=== PATIENT | male | born 1970 | race Caucasian/White ===

== ENCOUNTER 2022-05-31 16:45 | Observation (INO) | payer OTHER, SELFPAY ==
--- NOTE | ~2022-05-31 | US_ITS ---
EXAMINATION: US abdomen limited DATE: 06/01/2022 14:11 INDICATION: gallstones TECHNIQUE: Multiple grayscale and Doppler ultrasound images of limited portions of the abdomen were o btained. COMPARISON: None available. FINDINGS: Pancreas not visualized. The liver is normal sized with increased echogenicity and normal e chotexture. No surface nodularity. Normal hepatopetal flow in the main portal vein. The gallbladder i s normal size with no pericholecystic fluid or stones. Focal borderline gallbladder wall thickening a t the gallbladder fundus, with associated twinkle artifact and subtle/incomplete comet tail versus ri ng down artifact. The common bile duct measures 3 mm. There was no sonographic Winston sign. IMPRESSION: Pancreas not visualized. Hepatic steatosis. Gallbladder fundus findings may represent a small focus o f adherent gallbladder sludge with a tiny stone versus adenomyomatosis or cholesterolosis. Reviewed, dictated and finalized at [facility]. IMPRESSION: Pancreas not visualized. Hepatic steatosis. Gallbladder fundus findings may rep resent a small focus of adherent gallbladder sludge with a tiny stone versus ad enomyomatosis or cholesterolosis.
--- NOTE | ~2022-05-31 | CT_ITS ---
EXAMINATION: CTA chest PE abdomen pel DATE: 05/31/2022 21:02 INDICATION: Pain under right ribs. Deep venous thrombosis. Abdominal pain. TECHNIQUE: Computed tomography angiography (CTA) of the chest, abdomen and pelvis was performed with 100 mL Omnipaque-350 intravenous contrast timed to evaluate the pulmonary arteries. Coronal maximum i ntensity projection 3D-reconstructions were created by the technologist. Automated exposure control a nd iterative reconstruction technique were employed. Exam dose: 1754.90 mGy-cm total exam DLP. COMPARISON: None. FINDINGS: There is diagnostic contrast enhancement of the pulmonary arteries and no evidence of left pulmonary saddle embolus. No thoracic aortic aneurysm. Normal heart size. No pericardial or pleural effusion. No hilar or mediastinal mass lesion or lymphadenopathy. No evidence of right heart strain. No pulmonary infiltrate or consolidation or pulmonary mass lesion. Small stone in the dependent aspect of the gallbladder. There is borderline thickening of the gallbla dder wall is suggestion of mild pericholecystic fat stranding. Consider acute cholecystitis. The liver, spleen, pancreas, and adrenal glands and kidneys are unremarkable. There is no bile duct or pancreatic duct dilatation. No urinary tract calculus or hydroureteronephros is. Normal caliber of the abdominal aorta. No intraperitoneal or retroperitoneal or pelvic mass lesion or adenopathy or ascites. Acute Normal appendix. No bowel obstruction or intraperitoneal free air. No suspicious osteolytic or osteoblastic lesions. IMPRESSION: Left central pulmonary embolus; no evidence of right heart strain Gallstones are; cannot exclude acute cholecystitis Dr. Ghosh telephoned the report on 05/31/20226 hours to emergency room physician Dr. Haro. Reviewed, dictated and finalized at [facility]. Reviewed, dictated and finalized at [facility]. IMPRESSION: Left central pulmonary embolus; no evidence of right heart strain Gallstones are; cannot exclude acute cholecystitis Dr. Ghosh telephoned the report on 05/31/2022 2126 hours to emergency room physici an Dr. Haro.
[2022-05-31 16:48] VITALS: BP 132/97; PULSE 61; RESP 20; TEMP 36.3; O2SAT 100
[2022-05-31 17:01] LABS: Basophils Absolute Auto 0.1 K/mm3 (0.0-0.1); Basophils Percent Auto 0.4 % (0.2-1.2); Eosinophils Absolute Auto 0.1 K/mm3 (0-0.3); Eosinophils Percent Auto 0.8 % (0-4.4); Hematocrit 40.5 % (42.0-52.0); Hemoglobin 14.4 g/dL (14.0-18.0); Immature Granulocyte Absolute 0.03 K/mm3 (0.00-0.031); Immature Granulocyte Percent A 0.3 % (0-0.5); Lymphocytes Absolute Auto 1.77 K/mm3 (0.9-3.2); Lymphocytes Percent Auto 15.2 % (18.3-44.2); Mean Corpuscular HGB Conc 35.6 g/dl (32-36); Mean Corpuscular Hemoglobin 31.8 pg (26-34); Mean Corpuscular Volume 89.4 fl (80-100); Mean Platelet Volume 9.2 fl (7.4-10.4); Monocytes Absolute Auto 0.9 K/mm3 (0.1-0.6); Monocytes Percent Auto 7.3 % (2.6-8.5); Neutrophils Absolute Auto 8.9 K/mm3 (1.3-6.7); Platelet Count Result 274 k/mm3 (150-375); Red Blood Count 4.53 M/mm3 (4.6-6.20); Red Cell Distribution Width 11.9 % (11.5-14.5); White Blood Count 11.7 K/mm3 (4.5-10.0)
[2022-05-31 17:14] LABS: Alanine Aminotransferase 73 U/L (6-50); Albumin Level 4.3 g/dL (3.5-5.1); Alkaline Phosphatase 127 U/L (38-126); Anion Gap 6 mmol/L (8-16); Aspartate Amino Transferase 43 U/L (17-59); Bilirubin,Total 0.8 mg/dL (0.2-1.3); Blood Urea Nitrogen 19 mg/dL (9-20); Calcium 9.4 mg/dL (8.4-10.2); Carbon Dioxide 30 mmol/L (22-30); Chloride 103 mmol/L (98-107); Estimated CRCL calculation 103 ml/min; Estimated Glomerular Filt Rate > 60; Glucose 148 mg/dL (65-110); Lipase 96 U/L (23-300); Potassium 4.2 mmol/L (3.4-5.0); Sodium 139 mmol/L (137-145)
[2022-05-31 20:08] VITALS: PULSE 76; RESP 18
[2022-05-31 20:15] VITALS: PULSE 72; RESP 23
[2022-05-31 20:30] VITALS: PULSE 70; RESP 16
[2022-05-31 20:32] VITALS: BP 125/85; PULSE 68; RESP 17
--- NOTE | 2022-05-31 20:50 | ED.GENADULT ---
HPI - General Adult General Chief complaint: Abdominal Pain Stated complaint: ABD PAIN Time Seen by Provider: 05/31/22 20:03 Source: patient and RN notes reviewed Mode of arrival: ambulatory Limitations: no limitations History of Present Illness HPI narrative: This a 52 year old male with history of recent left leg DVT diagnosis who presents for evaluation of right upper abdominal pain. Patien states approximately 1 hours after eating [employer] he developed right upper abdominal pain with nausea and vomiting. He also reports pain under his right rib and his back . He states his pain has now resolved and he denies current nausea . He denies shortness of breath, dizziness, fever or chills. He denies history of gallbladder disease or gallstones. He is concerned that his symptoms are due to PE. He had lipoma removed from his neck in 1 weeks ago and he was diagnosed with left DVT 7 days ago due to calf pain. He denies previous history of DVT and it is thought this is postop complication. Related Data Allergies Allergy/AdvReac Type Severity Reaction Status Date / Time No Known Allergies Allergy Verified 05/31/22 20:13 Review of Systems Constitutional: Constitutional: Denies weakness Cardiovascular: Cardiovascular: Denies syncope, Denies rapid heart rate, Denies irregular heart rhythm, Denies leg edema and Denies dyspnea Respiratory: Respiratory: Denies chest congestion, Denies hemoptysis, Denies excessive phlegm production and Denies dyspnea Gastrointestinal: Gastrointestinal: Reports abdominal pain, Denies hematochezia, Denies diarrhea, Reports nausea and Reports vomiting Genitourinary: Genitourinary: Denies hematuria, Denies dysuria, Denies penile discharge and Denies testicular pain Musculoskeletal: Musculoskeletal: Denies joint swelling, Denies loss of height and Denies muscle weakness Neurologic: Denies syncope, Denies focal weakness and Denies weakness PMFSH Past Medical History Medical History (Updated 05/31/22 @ 23:21 by Monika Haro MD) DVT (deep venous thrombosis) Lipoma Surgical History Surgical History (Updated 05/31/22 @ 20:56 by Monika Haro MD) S/P excision of lipoma Social History Social History (Updated 05/31/22 @ 20:56 by Monika Haro MD) Smoking status: Never smoker Exam Const: General: healthy appearing, no acute distress and alert Nutritional Appearance: well nourished Orientation/consciousness: patient oriented x3 HENMT: Head: normal to inspection Face and sinus: normal facial exam Eyes: EOM: EOMs intact bilaterally Neck: Neck: normal visual inspection Chest: Chest palpation & inspection: normal inspection of the chest Resp: Effort & Inspection: normal respiratory effort Auscultation: clear to auscultation bilaterally Cardio: Rate: regular rate Rhythm: regular rhythm GI: GI Palp: Yes Soft to palpation, No Tenderness to palpation present (GI), No Guarding due to palpation present (GI), No Rigid due to palpation and No Hernia present Auscultation: normal bowel sounds : General: Yes no CVA tenderness Back/Spine/Pelvis: Back: no CVA tenderness Skin: General skin exam: normal color Rashes: no rashes Wounds: no wounds Neuro: General: patient oriented x3, moves all extremities and CN's II-XI intact bilaterally Extrem: General: normal to inspection Psych: Mental Status: mental status grossly normal Affect: normal affect Attitude: cooperative Course Reevaluation(s) Reevaluation #1: I Discussed with patient and his CT findings of PE and possible cholecystitis. PAtient is agreeable to admission to [facility] instead of [facility] were his lipoma incision done. He is stable. He denies any pain or sob. Date: 05/31/22 Time: 22:00 Consultations Consultation #1: I Discussed case with DR. Humphrey. He states he does not need to consult on patient. PAtient does not need antibiotics. He will just need to follow up with him after discharge. Date:
[2022-05-31 21:05] LABS: Appearance Urine Turbid (Clear); Bacteria Urine None Seen /hpf; Bilirubin Urine Negative (Negative); Blood Urine Negative (Negative); Color Urine Yellow (Yellow); Glucose Urine UA Negative (Negative); Ketones Urine Negative (Negative); Leukocyte Esterase Ur Negative LEU/UL (Negative); Need Manual Microscopic Reviewed; Nitrate Urine Negative (Negative); Non Pathogenic Casts 0-2; Protein Urine 1+ mg/dL (Negative); Specific Grav Ur 1.033 (1.001-1.035); Squamous Epithelial Cell Urine None seen /hpf (Few); WBC Urine 0-5 /hpf
[2022-05-31 21:06] LABS: Add Urine Microscopic? YES
--- NOTE | 2022-05-31 21:26 | ECG_ITS ---
Measurements Intervals [place] Rate: 62 P: 15 UT: 182 QRS: -9 QRSD: 108 T: 19 QT: 411 QTc: 420 Interpretive Statements SINUS RHYTHM RSR' V1 EARLY R/S TRANSITION BORDERLINE ECG NO PREVIOUS ECG AVAILABLE FOR COMPARISON Electronically Signed On 06-01-2022 15:20:29 CDT by Francis Thompson M.D.
--- NOTE | 2022-05-31 21:34 | PM.IMHP ---
H&P: HPI History of Present Illness Date/Time: 05/31/22 21:34 Chief Complaint: Right upper quadrant pain Narrative: This is a 52-year-old male with past medical history significant for recently diagnosed left lower extremity DVT patient was started on Eliquis and sent home he comes to the emergency room today after sudden onset of right upper quadrant pain while taking a deep breath, patient denies any cough, hemoptysis, palpitations, lightheadedness, syncope or near syncope, no chest pain. Patient has been complying with his medication. Preliminary workup was significant for acute pulmonary embolism. Patient is been admitted for further evaluation management and treatment. CT chest PE protocol was reported as FINDINGS: There is diagnostic contrast enhancement of the pulmonary arteries and no evidence of left pulmonary saddle embolus. No thoracic aortic aneurysm. Normal heart size. No pericardial or pleural effusion. No hilar or mediastinal mass lesion or lymphadenopathy. No evidence of right heart strain. No pulmonary infiltrate or consolidation or pulmonary mass lesion. Small stone in the dependent aspect of the gallbladder. There is borderline thickening of the gallbladder wall is suggestion of mild pericholecystic fat stranding. Consider acute cholecystitis. The liver, spleen, pancreas, and adrenal glands and kidneys are unremarkable. There is no bile duct or pancreatic duct dilatation. No urinary tract calculus or hydroureteronephrosis. Normal caliber of the abdominal aorta. No intraperitoneal or retroperitoneal or pelvic mass lesion or adenopathy or ascites. Acute Normal appendix. No bowel obstruction or intraperitoneal free air. No suspicious osteolytic or osteoblastic lesions. IMPRESSION:? Left central pulmonary embolus; no evidence of right heart strain Gallstones are; cannot exclude acute cholecystitis Review of Systems Review of Systems: Right upper quadrant pain Constitutional: Constitutional: Denies chills, Denies fatigue, Reports fever(s), Denies lethargy, Denies malaise, Denies night sweats, Denies poor appetite and Denies weakness Eyes: Eyes: Denies change in vision ENT: Denies dysphagia and Denies odynophagia Cardiovascular: Cardiovascular: Denies chest pain, Denies irregular heart rhythm, Denies leg edema, Denies lightheadedness and Denies palpitations Respiratory: Respiratory: Denies chest congestion, Denies cough, Denies hemoptysis and Denies dyspnea Gastrointestinal: Gastrointestinal: Denies abdominal pain, Denies dyspepsia, Denies heartburn, Denies diarrhea, Denies nausea and Denies vomiting Genitourinary: Genitourinary: Denies dysuria Musculoskeletal: Musculoskeletal: Denies back pain, Denies myalgias, Denies joint swelling and Denies muscle weakness Integumentary/Breasts: Skin/Breast: Denies rash Neurologic: Denies focal weakness and Denies Sensory deficit (Neuro) Psychiatric: Psychiatric: Reports no additional psychiatric complaints and Reports as per HPI Endocrine: Endocrine: Denies cold intolerance, Denies fatigue, Denies flushing, Denies heat intolerance, Denies polyphagia, Denies polydipsia and Denies palpitations Hematologic/Lymphatic: Hematologic/Lymphatic: Reports no additional hematologic/lymphatic complaints and Reports as per HPI Allergic/Immunologic: Allergic/Immunologic: Reports no additional allergic/immunologic complaints and Reports as per HPI PMFSH Past Medical History Medical History (Updated 06/01/22 @ 00:18 by Som Cortez MD) DVT (deep venous thrombosis) Lipoma Surgical History Surgical History (Updated 05/31/22 @ 20:56 by Monika Haro MD) S/P excision of lipoma Social History Social History (Updated 05/31/22 @ 20:56 by Monika Haro MD) Smoking status: Never smoker Alcohol intake: current Drinks per week: 1 Substance use: never Substance use type: does not use Lack of Transportation: No Lack of Food: Never True Current Hous
[2022-05-31] MEDS: PIPERACILLN/TAZ 3.375GM/NS50ML 3.375 GM/50 ML BAG IVPB (22:07)
[2022-05-31 22:10] LABS: NT Pro B Type Natriuretic Pept 22 pg/mL (19.9-100); Troponin I < 0.012 ng/mL (0.000-0.034)
[2022-05-31 22:12] LABS: INR 1.1; Prothrombin Time 13.5 Seconds (11.1-14.7)
[2022-05-31 22:13] LABS: Partial Thromboplastin Time 30.3 SECONDS (22.3-36.8)
[2022-05-31] MEDS: HEPARIN SOD/D5W 100 UNITS/ML 25,000 UNITS/250 ML BAG 15 UNITS IV CONT (22:25)
[2022-05-31] MEDS: HEPARIN SODIUM 5,000 UNITS/ML VIAL 7000 UNITS IV PUSH (22:27)
[2022-05-31 23:10] VITALS: PULSE 85; RESP 17; O2SAT 100; BMI 33.0
[2022-06-01] VITALS (7 sets, daily range): BP systolic 120–128; BP diastolic 78–85; PULSE 64–81; RESP 16–20; TEMP 36.8–36.9; O2SAT 95–97
[2022-06-01 06:09] LABS: Basophils Percent Auto 0.5 % (0.2-1.2); Eosinophils Absolute Auto 0.1 K/mm3 (0-0.3); Eosinophils Percent Auto 1.1 % (0-4.4); Hematocrit 39.9 % (42.0-52.0); Immature Granulocyte Absolute 0.03 K/mm3 (0.00-0.031); Immature Granulocyte Percent A 0.4 % (0-0.5); Lymphocytes Absolute Auto 2.42 K/mm3 (0.9-3.2); Lymphocytes Percent Auto 29.1 % (18.3-44.2); Mean Corpuscular HGB Conc 35.1 g/dl (32-36); Mean Corpuscular Hemoglobin 31.3 pg (26-34); Mean Corpuscular Volume 89.3 fl (80-100); Mean Platelet Volume 9.8 fl (7.4-10.4); Monocytes Absolute Auto 0.8 K/mm3 (0.1-0.6); Monocytes Percent Auto 9.1 % (2.6-8.5); Neutrophils Percent Auto 59.8 % (45.5-73.1); Platelet Count Result 259 k/mm3 (150-375); Red Blood Count 4.47 M/mm3 (4.6-6.20); Red Cell Distribution Width 11.9 % (11.5-14.5); White Blood Count 8.3 K/mm3 (4.5-10.0)
[2022-06-01 06:12] LABS: Partial Thromboplastin Time 75.8 SECONDS (22.3-36.8)
[2022-06-01] MEDS: HEPARIN SOD/D5W 100 UNITS/ML 25,000 UNITS/250 ML BAG 15 UNITS IV CONT (06:22)
[2022-06-01] MEDS: MULTIVITAMIN HEMATINIC (*BKC) TABLET 1 TABLET PO (08:11)
[2022-06-01] MEDS: FAMOTIDINE 20 MG TABLET PO (08:11)
[2022-06-01] MEDS: NIACIN SA 500 MG TABLET PO (08:11)
[2022-06-01] MEDS: OMEGA 3 POLYUNSAT FATTY ACIDS 1 GM CAP PO (08:11)
[2022-06-01] MEDS: valACYclovir HCL 500 MG TABLET PO (08:11)
[2022-06-01] MEDS: LORATADINE 10 MG TABLET PO (08:14)
--- NOTE | 2022-06-01 09:15 | PM.DS ---
DS: Admitting Diagnosis Discharge Date 06/01/2215 Admitting Diagnosis acute PE DS: Discharge Diagnosis Discharge Diagnosis (1) Pulmonary emboli: Code(s): I26.99 - Other pulmonary embolism without acute cor pulmonale Status: Acute Assessment and Plan: diagnosed with DVT 1 week ago continue Eliquis and discontinue heparin most likely related to the DVT patient did report having walked yesterday symptoms have resolved (2) DVT (deep venous thrombosis): Code(s): I82.409 - Acute embolism and thrombosis of unspecified deep veins of unspecified lower extremity Status: Acute Assessment and Plan: see above (3) Abdominal pain, acute, right upper quadrant: Code(s): R10.11 - Right upper quadrant pain Status: Acute Assessment and Plan: Galbladder disease General surgery consult right upper quadrant ultrasound ordered pending follow-up with General surgery outpatient DS: Summary Hospital Course Hospital Course: patient is a 52-year-old male with a past medical history of DVT who presented to the ED with complaints of right upper quadrant pain while taking a deep breath. CTA of the chest abdomen and pelvis showed acute PE without right heart strain. Patient was started on heparin. Symptoms have resolved. Right upper quadrant ultrasound has been ordered. CTA did indicate that there was gallstones. PE most likely related to acute DVT that he was diagnosed with 7 days ago. Heparin has been stopped and Eliquis has been restarted. Patient will need to follow up with General surgery outpatient. Currently he is able to tolerate food. Right upper quadrant ultrasound found . currently patient is stable for discharge for labs and vital signs. currently patient denies any chest pain, shortness a breath, nausea, vomiting, diarrhea constipation. Status at Discharge Functional status at discharge: independent ambulation Overall status at discharge: patient is progressing back to baseline Time Spent with Patient Time attestation: Total time spent providing and/or coordinating discharge services:51 minutes Time spent: Greater than 30 minutes Specific discharge activities: Diagnostic testing, chart review, developing a treatment plan, education, care coordination documentation, physical exam, result review Exam Narrative: General: well-nourished, well-appearing 52-year-old male, Lying in bed, comfortable, NARD Neuro: awake, alert and oriented x4, speech clear, no focal neuro deficits noted HEENMT: normocephalic, atraumatic, EOMI, sclerae anicteric, moist oral mucosa Respiratory: Clear to auscultation bilaterally without crackles, rhonchi or wheezes, nonlabored breathing Cardio: regular rate, regular rhythm with S1-S2 Abdomen: nondistended, normoactive bowel sounds, soft, nontender to palpation Extremities: no edema, erythema, or tenderness to palpation, DP pulses 2+ bilaterally Skin: no rashes or lesions, warm and dry Psych: appropriate mood and affect, judgment and insight intact DS: Data Data Completed and Pending Labs on day of discharge: Labs from last 24 hours 06/01/22 06/01/22 06/01/22 10:40 04:41 04:41 WBC 8.3 RBC 4.47 L Hgb 14.0 Hct 39.9 L MCV 89.3 MCH 31.3 MCHC 35.1 RDW 11.9 Plt Count 259 MPV 9.8 Immature Gran % (Auto) 0.4 Neut % (Auto) 59.8 Lymph % (Auto) 29.1 [place] % (Auto) 9.1 H Eos % (Auto) 1.1 Baso % (Auto) 0.5 Lymph # (Auto) 2.42 [place] # (Auto) 0.8 H Eos # (Auto) 0.1 Baso # (Auto) 0.0 Abs Immat Gran (auto) 0.03 Absolute Neuts (auto) 5.0 Absolute Nucleated RBC 0.0 Nucleated RBC % 0.0 PT INR APTT 51.5 H 75.8 H Sodium Potassium Chloride Carbon Dioxide Anion Gap BUN Creatinine Estim Creat Clear Calc Estimated GFR Glucose Calcium Total Bilirubin AST ALT Emilie
[2022-06-01 10:56] LABS: Partial Thromboplastin Time 51.5 SECONDS (22.3-36.8)
[2022-06-01] MEDS: HEPARIN SODIUM 5,000 UNITS/ML VIAL 7000 UNITS IV PUSH (11:16)
[2022-06-01] MEDS: ASPIRIN 81 MG CHEWABLE TABLET PO (11:16)
[2022-06-01 11:56] LABS: Alanine Aminotransferase 66 U/L (6-50); Albumin Level 4.1 g/dL (3.5-5.1); Alkaline Phosphatase 115 U/L (38-126); Anion Gap 6 mmol/L (8-16); Aspartate Amino Transferase 40 U/L (17-59); Bilirubin,Total 0.8 mg/dL (0.2-1.3); Blood Urea Nitrogen 14 mg/dL (9-20); Calcium 9.2 mg/dL (8.4-10.2); Carbon Dioxide 28 mmol/L (22-30); Chloride 104 mmol/L (98-107); Estimated CRCL calculation 115 ml/min; Estimated Glomerular Filt Rate > 60; Glucose 98 mg/dL (65-110); Potassium 3.7 mmol/L (3.4-5.0); Sodium 138 mmol/L (137-145)
[2022-06-01] MEDS: APIXABAN 5 MG TABLET 10 MG PO (12:29)
== END 2022-06-01 18:30 | disposition home or self-care (01) ==
LOC: ANHED 20:29 → ANH2MED 22:56
PROVIDERS: Emergency Medicine; Nurse Practitioner; Admitting Provider Internal Medicine; Emergency Provider General Practice; Visit Provider Chiropractor
DX: I26.99 Other pulmonary embolism without acute cor pulmonale (principal); I82.409 Acute embolism and thrombosis of unspecified deep veins of unspecified lower extremity; R10.11 Right upper quadrant pain; K76.0 Fatty (change of) liver, not elsewhere classified; R79.89 Other specified abnormal findings of blood chemistry; Z79.01 Long term (current) use of anticoagulants; F10.90 Alcohol use, unspecified, uncomplicated
CPT/HCPCS: 36415; 71275; 74177; 76705; 80053; 81001; 83690; 83880; 84484; 85025; 85610; 85730; 93005; 96365; 96366; 96367; 96375; 99285; A9270; G0378; J1644; J2543; Q9967

== ENCOUNTER 2024-08-02 10:06 | Outpatient (CLI) | payer OTHER, SELFPAY ==
--- NOTE | 2024-08-02 10:30 | ECG_ITS ---
Test Date: 2024-08-02 10:34:19 Measurements Intervals [place] Rate: 51 P: 5 MT: 171 QRS: -20 QRSD: 110 T: 3 QT: 388 QTc: 360 Interpretive Statements SINUS BRADYCARDIA DELAYED PRECORDIAL R/S TRANSITION BORDERLINE T WAVE ABNORMALITY- INFERIOR LEADS BORDERLINE ECG No previous ECG available for comparison Electronically Signed On 08-02-2024 10:39:18 CDT by Iraj Davis D.O.
[2024-08-02 11:10] LABS: Prothrombin Time 12.8 Seconds (11.1-14.7)
[2024-08-02 11:17] LABS: Alanine Aminotransferase 68 U/L (6-50); Albumin Level 4.5 g/dL (3.5-5.1); Alkaline Phosphatase 82 U/L (38-126); Amylase 66 U/L (30-110); Aspartate Amino Transferase 44 U/L (17-59); Bilirubin Direct 0.1 mg/dL (0-0.3); Lipase 57 U/L (23-300); Total Protein 7.9 g/dL (6.3-8.2)
--- OUTSIDE RECORDS SUMMARY | 2024-08-02 11:18 | XMS_ITS | Clinical Summary ---
Author Organization [facility] Address [address] [place] [address] Phone Care Team Providers Care Dip Tube Assembler Machine Name Role Phone Angie Gomez MD Primary Care Provider [phone] Allergies No known active allergies Medications aspirin (RAÚL CHEWABLE) 81 mg Tablet, Chewable Take 81 mg by mouth daily. Active omega-3 fatty acids-fish oil 300-1,000 mg Capsule Take 2 Capsules by mouth daily. Active multivitamin (DAILY-FAUSTINA) tablet Take 1 Tablet by mouth daily. Active niacin (NIACOR) 100 mg Tablet Take 100 mg by mouth daily at bedtime. Active cyanocobalamin (VITAMIN B-12) 100 mcg tablet Take 100 mcg by mouth daily. Active valACYclovir (VALTREX) 500 mg tablet Take 500 mg by mouth daily. Active cetirizine (ZyrTEC) 10 mg tablet Take 10 mg by mouth daily. Active famotidine (PEPCID) 10 mg tablet Take 10 mg by mouth daily. Active fluticasone propionate (FLONASE) 50 mcg/spray [place], Suspension nasal inhaler Administer 2 Sprays in each nostril 1 time daily as needed for Rhinitis. Active Active Problems Problem Noted Date Diagnosed Date Splenomegaly 08/23/2019 Liver fibrosis 11/07/2017 HSV (herpes simplex virus) anogenital infection 07/17/2016 Post-traumatic osteoarthritis of shoulder 2016 MANCUSO (nonalcoholic steatohepatitis) 07/17/2016 Social History Tobacco Use Types Packs/Day Years Used Date Smoking Tobacco: Former Alcohol Use Standard Drinks/Week Comments Yes 2 (1 standard drink = 0.6 oz pur e alcohol) Sex and Gender Information Value Date Recorded Sex Assigned at Not on file Legal Sex Male 3:34 AM [employer] Gender Identity Not on file Sexual Orientation Not on file Last Filed Vital Signs Vital Sign Reading Time Taken Comments Blood Pressure 126/86 03/07/2020 7:57 AM [employer] Pulse 64 03/07/2020 7:57 AM [employer] Temperature - - Respiratory Rate - - Oxygen Saturation - - Inhaled Oxygen Concentration - - Weight 104.8 kg (231 lb) 03/07/2020 7:57 AM [employer] Height 180.3 cm (5' 11) 03/07/2020 7:57 AM [employer] Body Mass Index 32.22 03/07/2020 7:57 AM [employer] Plan of Treatment Health Maintenance Due Date Last Done Comments DTAP/TDAP/TD VACCINES (1 - Tdap) 1990 HEPATITIS B VACCINES (1 of 3 - 19+ 3-dose series) 02/25 COLORECTAL SCREENING 2016 Colorectal Cancer Screening 2016 FIT-DNA Q 3 years 2016 FIT/FOBT Q 1 year 2016 Flex Sig/CT Colonography Q 5 years 2016 ZOSTER VACCINE (1 of 2) 2021 INFLUENZA VACCINE (#1) 2023 Insurance [employer] [id number] [employer] Care Teams Dip Tube Assembler Machine Relationship Specialty Start Date End Date Angie Gomez MD [address] [place] [id number] PCP - General Internal Medicine 06/11/16
== END 2024-08-02 10:07 | disposition home or self-care (01) ==
LOC: ANHSURGERY 10:11
PROVIDERS: PCP Internal Medicine; Visit Provider Surgery
DX: R94.31 Abnormal electrocardiogram [ECG] [EKG] (principal); K80.20 Calculus of gallbladder without cholecystitis without obstruction; I82.409 Acute embolism and thrombosis of unspecified deep veins of unspecified lower extremity; Z01.818 Encounter for other preprocedural examination
CPT/HCPCS: 36415; 80076; 82150; 83690; 85610; 93005

== ENCOUNTER 2024-08-09 01:33 | Day surgery (SDC) | payer OTHER, SELFPAY ==
[2024-07-30 10:22] VITALS: BMI 33.3
--- NOTE | 2024-07-30 10:23 | PC.NURSE ---
Report to the Outpatient Waiting Room, entrance under the green pavilion located off [facility], at time _1130_ on date _[id number]_. Planned Procedure Time: _130pm_.? Time changes happen often and if your time is changed the preop area will call you the afternoon before. - You and your visitor will be asked to self-screen and do not enter if you have any COVID symptoms. Please call surgeon if you need to reschedule. - A mask is optional within the hospital at this time. Patients may have clear liquids (water, carbonated beverages, clear teas, apple juice) until 3 hours prior to surgery with a maximum of 20 ounces. - No food from midnight until time of surgery and no smoking, or chewing tobacco (or any form of nicotine). No chewing gum, candy or mints. Take only the following medications with a SIP of water on the morning of surgery: ___None____ DO NOT STOP ANY OF YOUR OTHER PRESCRIPTION MEDICATIONS PRIOR TO SURGERY EXCEPT THE FOLLOWING Hold all vitamins and supplements for 3 days per anesthesiologist. Medications to discontinue per physician Date to take last [id number]___ Please no make-up, nail maldivian, hairspray, perfume, deodorant, or body powder the day of surgery.? No jewelry (including any body piercings) or valuables the day of surgery, leave them at home.? Please take a shower or bath the night before, or the morning of, surgery with an antibacterial soap.? Wear comfortable, loose fitting clothing.? - Jewelry must be removed prior to entering the operating room.? Rings and piercings that are not removed may be cut off. - The hospital will not accept responsibility for valuables.? - Please leave all valuables, including medications, at home the day of surgery. If you are going home after surgery, a licensed regional owner operator truck driver must drive you home.? - NO public transportation without another adult if you receive anesthesia. - We recommend that an adult stay with you for 24 hours following discharge. - We also recommend that you do not drive, make important decision, drink alcoholic beverages, or take any drugs that were not prescribed by your health care provider for at least 24 hours after your discharge time. Follow any additional instructions given to you from your surgeon. Telephone instructions given to __Rob__and asked if any additional questions and then verbalized understanding. Patient advised to call surgeon office or pre surgery nurse liaison [phone] if any additional questions.
[2024-08-09] VITALS (11 sets, daily range): BP systolic 123–147; BP diastolic 68–95; PULSE 50–88; RESP 12–18; TEMP 36.4–36.6; O2SAT 92–99
--- OUTSIDE RECORDS SUMMARY | 2024-08-09 01:36 | XMS_ITS | Clinical Summary ---
Author Organization [facility] Address [address] [address] Phone Care Team Providers Care Collections Professional Name Role Phone Angie Gomez MD Primary Care Provider [phone] Allergies No known active allergies Medications aspirin [...] daily. Active fluticasone propionate (FLONASE) 50 mcg/spray [place], Suspension nasal inhaler Administer 2 Sprays in [...] on file Legal Sex Male 3:34 AM [employer] Gender Identity Not on file Sexual Orientation Not on file Last Filed Vital Signs Vital Sign Reading Time Taken Comments Blood Pressure 126/86 03/07/2020 7:57 AM [employer] Pulse 64 03/07/2020 7:57 AM [employer] Temperature - - Respiratory Rate - - Oxygen Saturation - - Inhaled Oxygen Concentration - - Weight 104.8 kg (231 lb) 03/07/2020 7:57 AM [employer] Height 180.3 cm (5' 11) 03/07/2020 7:57 AM [employer] Body Mass Index 32.22 03/07/2020 7:57 AM [employer] Plan of Treatment Health Maintenance Due Date [...] INFLUENZA VACCINE (#1) 2023 Insurance [employer] [id number] [employer] Care Teams Collections Professional Relationship Specialty Start Date End Date Angie Gomez MD [address] [place] [phone] PCP - General Internal Medicine 06/11/16
--- NOTE | 2024-08-09 12:48 | WPDHPUPDATE1 ---
History and Physical Update Update Date/Time: 08/09/24 12:48 History and Physical has been reviewed, including an updated exam of the patient. There are NO changes in the patient's condition. The procedure will be laparoscopic cholecystectomy, da Nereida assisted. There are no other changes to the plan. Risks, benefits, and alternatives have been discussed and questions answered. Patient agrees to proceed with procedure.
--- NOTE | 2024-08-09 12:53 | WPDANESEPPF ---
Anes - Initial Pre Proc Eval Procedure: Operation Date: 08/09/24 14:00 Proposed Procedures p Laparoscopic Cholecystectomy, Davinci Assisted Possible Open - Kwan Aguilar DO Date/Time: 08/09/24 12:53 Surgeon: Kwan Aguilar DO Pre Op Diagnosis: symptomatic cholelithiasis Patient Data Age: 54 Gender: M Height: 1.78 m Weight: 105.5 kg Allergies Allergy/AdvReac Type Severity Reaction Status Date / Time No Known Allergies Allergy Verified 07/30/24 10:09 Home Medications ?Medication ?Instructions ?Recorded ?Confirmed ?Type aspirin 81 mg capsule 81 mg PO DAILY 05/31/22 07/30/24 History cetirizine 10 mg tablet (Zyrtec) 10 mg PO DAILY 05/31/22 07/30/24 History multivitamin with minerals-folic 1 tablet PO DAILY 05/31/22 07/30/24 History acid 12 mcg chewable tablet (Centrum Adults) niacin 500 mg tablet,extended 500 mg PO QAM 05/31/22 07/30/24 History release valacyclovir 500 mg tablet 500 mg PO DAILY 05/31/22 07/30/24 History cholecalciferol (vitamin D3) 25 1,000 unit PO DAILY 07/30/24 07/30/24 History mcg (1,000 unit) capsule (Vitamin D3) famotidine 10 mg tablet (Acid 10 mg PO DAILY 07/30/24 07/30/24 History Access Director (famotidine)) Laboratory Tests 08/09/24 12:41 Blood Type Pending Antibody Screen Pending Patient hx anesthesia problems: none Family hx anesthesia problems: none Results Review: All pre-operative results and documents have been reviewed as part of the pre-operative evaluation. [facility] Past Medical History Medical History Gallbladder disorder Allergies Lipoma DVT (deep venous thrombosis) Surgical History Surgical History S/P excision of lipoma 05/13/22 Family History Family History Father Malignant neoplasm of prostate Social History Social History Smoking packs per day: 1 Smoking cigarettes per day: 20.0 Years smoked: 10 Smoking pack-years: 10.00 Smoking status: Never smoker Tobacco type: cigarettes Smoking end date: 07/30/08 Alcohol intake: current Drinks per week: 1 Substance use: never Substance use type: does not use Do You Feel Safe in your Home?: Yes Lack of Transportation: No Lack of Food: Never True Current Housing: I Have Housing Concerned About Future Housing: No Difficulty Paying Gas/Electric Bills: No Difficulty Paying for Meds: No Currently Unemployed: No Education: Bachelor's Degree Difficulty w/ Childcare or Family Care: No Living arrangements: with family Spiritual care concerns: No Anes - Eval Final PreProcedure Day of Procedure 08/09/24 12:53 Patient weight: obese Heart: regular rate and rhythm Lungs: clear to auscultation Airway: Mallampati scale class II Neurological: alert and oriented Last oral intake: >/= 8 hours ASA classification: III Emergent: no Anesthetic plan: proceed Anesthesia type and monitoring: general ETT and standard monitoring Results Review: All pre-operative results and documents have been reviewed as part of the pre-operative evaluation. Informed Consent: The patient's anesthetic plan and its attendant risks and benefits were discussed with the patient/family/POA. Questions were solicited and answers provided to the satisfaction of the patient/family/POA.
[2024-08-09] MEDS: KETOROLAC 15 MG/ML VIAL (*BKC) IV PUSH (13:00)
[2024-08-09] MEDS: HEPARIN SODIUM 5,000 UNITS/ML VIAL 5000 UNITS SUB-Q (13:00)
[2024-08-09] MEDS: LACTATED RINGERS 1,000 ML 30 ML IV CONT ×2 (13:00→15:45)
[2024-08-09] MEDS: ACETAMINOPHEN 500 MG TABLET 1000 MG PO (13:00)
[2024-08-09] MEDS: INDOCYANINE GREEN 25 MG VIAL WITH DILUENT 3.75 MG IV PUSH (13:00)
[2024-08-09] MEDS: ceFAZolin 2 GM/D5W 50 ML 2 GM/50 ML BAG IVPB (13:14)
[2024-08-09] MEDS: BUPIVACAINE/EPINEPHRINE 0.5% 30 ML VIAL INFILTRATE (13:33)
--- NOTE | 2024-08-09 13:44 | S_PTH ---
PATIENT: Maxmi Briones III LOC: [facility] U#:[id number] AGE/SX: 54/M ROOM: RE08/09/[address]: Kwan Aguilar DO : 1970 BED: DIS: 08/09/2024 SPEC #: [id number] RECD: 08/10/24 07:44 STATUS: YVONNE REQ #: [id number] RASHMI: 08/09/24 13:[address]: Kwan Aguilar DEPT: [facility] Surgical RECD BY: Tj Mercado ENTERED: 08/10/24 07:44 SP TYPE: Surgical OTHR DR: Kwan Hernández, Tissues: A - Gallbladder Procedures: Hematoxylin and Eosin Stain Gross and Microscopic Level 3
--- NOTE | 2024-08-09 14:37 | P.OP_ITS ---
Procedure Note - Detailed Date of Procedure 08/09/24 Pre-op Diagnosis symptomatic cholelithiasis Post-op Diagnosis Same Procedure Performed 1. Laparoscopic cholecystectomy with cholangiography, da Nereida assisted 2. Interpretation of cholangiography Surgeon Kwan Aguilar, Anesthesia General and Local (0.5% bupivacaine) Indications This is a 54-year-old man who presented with intermittent right upper quadrant pain for the past 2 years. Symptoms have been a little more frequent recently. He did recently have a CT which showed evidence of a gallstone and this was followed by a gallbladder ultrasound which showed evidence of sludge or possible stone. Discussions were made with the patient about treatment options and decision was made to proceed with robotic assisted laparoscopic cholecystectomy with cholangiography. Findings Robotic assisted laparoscopic cholecystectomy with cholangiography was performed. 1.5 mL of indocyanine green was given intravenously in preop. Near infrared fluorescence imaging was utilized intraoperatively to identify the biliary anatomy. The patient appeared to have a gallstone at the neck of the gallbladder that was obstructing the gallbladder therefore no indocyanine green was visualized entering into the gallbladder itself. The cystic duct appeared normal in size. This appeared to be far enough away from the common bile duct but the common bile duct was difficult to visualize due to some overlying nighat pose tissue. The gallbladder appeared to have some evidence of chronic inflammation and multiple gallstones. There was thick black bile within the gallbladder and the gallbladder was very tense and difficult to grasp. While dissecting the gallbladder off of the liver bed, there was some spillage of bile but no stones were identified from where the bile spilled. The gallbladder was completely removed and sent to the lab for pathology. Description of Procedure Procedure as well as risks, benefits, and alternatives were discussed with the patient. Written consent was obtained and placed in chart prior to procedure. 1.5 mL of indocyanine green was given intravenously in preop. Patient was brought back to surgical suite. he was placed supine on operating table. Time-out was done to confirm patient and procedure. he was then intubated by the anesthesia department. his abdomen was then prepped and draped in sterile fashion using chlorhexidine prep. 0.5% bupivacaine was infiltrated locally at the site of each port placement. An 8 mm incision was made in the left upper quadrant and a 5 mm Optiview trocar was then advanced through the abdominal layers under direct visualization. Once inside the abdominal cavity, carbon dioxide insufflation was used to create a pneumoperitoneum. The camera was inserted and the abdomen was inspected. No mediated abnormalities were noted. The patient was placed in 12? reverse Trendelenburg position and rotated 6? to the left. Two 8 mm incisions were made in the right lateral abdomen and 2 8 mm trocars were inserted under direct visualization. An 8 mm incision was made in the supraumbilical region and an 8 mm trocar was inserted under direct visualization. The 5 mm Optiview trocar was then removed and another 8 mm trocar was inserted in its place. The robotic arms were then brought up to the patient's bedside and secured to each port. The camera and instruments were inserted. I then moved over to the robotic consult to take control of the camera and instruments. The gallbladder was grasped at the fundus and retracted cephalad. The infundibulum of the gallbladder was then grasped and retracted laterally. Hook electrocautery was then used to carefully dissect around the neck of the gallbladder. The cystic duct was identified and a window was created around it using hook electrocautery. The cystic artery was also identified and a window was created behind it using hook electrocautery. Critical view of safety was identified visualizing the cystic duct running directly into the neck of the gallbladder and the cystic artery running directly into the wall the gallbladder. The camera view was switched to firefly mode and the indocyanine green within the gallbladder and cystic duct was clearly visualized. No other structures were noted running into this region and there did not appear to be any obstruction of the cystic duct impeding flow of bile into the gallbladder. The camera mode was switched back to regular mode. Hemo lock clips were placed on both the cystic duct and cystic artery. Two clips were placed proximally and 1 distally. Hook electrocautery was then used to transect in between the clips. Once safely away from the tammie hepatus, hook electrocautery was used to dissect the gallbladder off of the liver bed. Once the gallbladder was completely dissected free it was then placed in an Endo- Catch bag and removed through the left upper quadrant port site. The liver bed was carefully inspected. Hemostasis appeared adequate under clips appeared secure. No other intra-abdominal abnormalities were noted. A Raj cone was then used to approximate the fascia of the left upper quadrant port using an 0 Vicryl suture. The remaining instruments and camera were removed and the robotic arms were disengaged from the ports. Pneumoperitoneum was released and the ports were removed. The skin of each of the incisions was then approximated using 4-0 Monocryl subcuticular suture. Exofin glue was then applied on top. Patient was then awakened from anesthesia, extubated, and transferred to recovery. Estimated Blood Loss 20 Pathology Yes (Gallbladder) Complications No immediate complications Condition Stable Disposition Same day [facility] Billing Surgery - Charge Forward: Surgery Billing
[2024-08-09] MEDS: oxyCODONE HCL (*CRX) 5 MG TAB IR PO (16:00)
== END 2024-08-09 16:55 | disposition home or self-care (01) ==
PROVIDERS: PCP Internal Medicine; Visit Provider Surgery
PROC: 0FT44ZZ Resection of Gallbladder, Percutaneous Endoscopic Approach (ICD-10-PCS; CPT 47562; principal; 2024-08-09 14:00)
DX: K80.10 Calculus of gallbladder with chronic cholecystitis without obstruction (principal); K21.9 Gastro-esophageal reflux disease without esophagitis; E66.9 Obesity, unspecified; Z68.33 Body mass index [BMI] 33.0-33.9, adult; Z79.82 Long term (current) use of aspirin; Z98.890 Other specified postprocedural states; Z86.718 Personal history of other venous thrombosis and embolism; Z80.42 Family history of malignant neoplasm of prostate
CPT/HCPCS: 47563; 74300; S2900; 36415; 86850; 86900; 86901; 88304; A9270; J0690; J1100; J1644; J1885; J2250; J2270; J2405; J2704; J7120

== ENCOUNTER 2024-09-06 01:21 | Day surgery (SDC) | payer OTHER, SELFPAY ==
[2024-08-17 13:23] VITALS: BMI 33.0
--- OUTSIDE RECORDS SUMMARY | 2024-09-06 01:26 | XMS_ITS | Clinical Summary ---
Author Organization [facility] Address [address] [place] [address] Phone Care Team Providers Care Lumber Carrier Name Role Phone Angie Gomez MD Primary Care Provider [phone] Allergies No known active allergies Medications aspirin [...] daily. Active fluticasone propionate (FLONASE) 50 mcg/spray [place], Suspension nasal inhaler Administer 2 Sprays in [...] on file Legal Sex Male 3:34 AM SEAT BUILDER Gender Identity Not on file Sexual Orientation Not on file Last Filed Vital Signs Vital Sign Reading Time Taken Comments Blood Pressure 126/86 03/07/2020 7:57 AM SEAT BUILDER Pulse 64 03/07/2020 7:57 AM SEAT BUILDER Temperature - - Respiratory Rate - - Oxygen Saturation - - Inhaled Oxygen Concentration - - Weight 104.8 kg (231 lb) 03/07/2020 7:57 AM SEAT BUILDER Height 180.3 cm (5' 11) 03/07/2020 7:57 AM SEAT BUILDER Body Mass Index 32.22 03/07/2020 7:57 AM SEAT BUILDER Plan of Treatment Health Maintenance Due Date Last Done Comments DTAP/TDAP/TD VACCINES (1 - Tdap) 1990 HEPATITIS B VACCINES (1 of 3 - 19+ 3-dose series) 02/25 COLORECTAL SCREENING 2016 Colorectal Cancer Screening 2016 FIT-DNA Q 3 years 2016 FIT/FOBT Q 1 year 2016 Flex Sig/CT Colonography Q 5 years 2016 ZOSTER VACCINE (1 of 2) 2021 INFLUENZA VACCINE (#1) 2024 Insurance [employer] [id number] [employer] Care Teams Lumber Carrier Relationship Specialty Start Date End Date Angie Gomez MD [address] [place] [id number] PCP - General Internal Medicine 06/11/16
[2024-09-06 06:52] VITALS: BP 116/89; PULSE 75; RESP 18; TEMP 36.1; O2SAT 99
--- NOTE | 2024-09-06 06:56 | P.PNAN_ITS ---
Anes - Initial Pre Proc Eval Procedure: Operation Date: 09/06/24 08:00 Proposed Procedures p EGD & Screening Colonoscopy - Kwan Aguilar DO Date/Time: 09/06/24 06:56 Surgeon: Kwan Aguilar DO Pre Op Diagnosis: screening for malignant neoplasm of colon, GERD Patient Data Age: 54 Gender: M Height: 1.78 m Weight: 106.5 kg Last Vital Signs Temp 36.1 C L 09/06/24 06:52 Pulse 75 09/06/24 06:52 Resp 18 09/06/24 06:52 BP 116/89 09/06/24 06:52 Pulse Ox 99 09/06/24 06:52 O2 Del Method Room Air 09/06/24 06:52 Allergies Allergy/AdvReac Type Severity Reaction Status Date / Time No Known Allergies Allergy Verified 09/06/24 06:51 Home Medications ?Medication ?Instructions ?Recorded ?Confirmed ?Type aspirin 81 mg capsule 81 mg PO DAILY 05/31/22 08/30/24 History cetirizine 10 mg tablet (Zyrtec) 10 mg PO DAILY 05/31/22 08/30/24 History multivitamin with minerals-folic 1 tablet PO DAILY 05/31/22 08/30/24 History acid 12 mcg chewable tablet (Centrum Adults) niacin 500 mg tablet,extended 500 mg PO QAM 05/31/22 08/30/24 History release valacyclovir 500 mg tablet 500 mg PO DAILY 05/31/22 08/30/24 History cholecalciferol (vitamin D3) 25 1,000 unit PO DAILY 07/30/24 08/30/24 History mcg (1,000 unit) capsule (Vitamin D3) famotidine 10 mg tablet (Acid 10 mg PO DAILY 07/30/24 08/30/24 History Stereotyper Helper (famotidine)) Patient hx anesthesia problems: none Family hx anesthesia problems: none Results Review: All pre-operative results and documents have been reviewed as part of the pre- operative evaluation. [facility] Past Medical History Medical History (Updated 08/26/24 @ 14:32 by Helen Daley) Gallbladder disorder Allergies Lipoma DVT (deep venous thrombosis) Surgical History Surgical History (Updated 08/26/24 @ 14:23 by Kulwant Graves MA) Hx laparoscopic cholecystectomy 08/09/24 1. Laparoscopic cholecystectomy with cholangiography, da Nereida assisted 2. Interpretation of cholangiography Dr. Aguilar S/P excision of lipoma 05/13/22 Family History Family History Father Malignant neoplasm of prostate Social History Social History Smoking packs per day: 1 Smoking cigarettes per day: 20.0 Years smoked: 10 Smoking pack-years: 10.00 Smoking status: Former smoker Tobacco type: cigarettes Smoking end date: 07/30/08 Alcohol intake: current Drinks per week: 1 Substance use: never Substance use type: does not use Do You Feel Safe in your Home?: Yes Lack of Transportation: No Lack of Food: Never True Current Housing: I Have Housing Concerned About Future Housing: No Difficulty Paying Gas/Electric Bills: No Difficulty Paying for Meds: No Currently Unemployed: No Education: Bachelor's Degree Difficulty w/ Childcare or Family Care: No Living arrangements: with family Spiritual care concerns: No Anes - Eval Final PreProcedure Day of Procedure 09/06/24 06:56 Patient weight: obese Heart: regular rate and rhythm Lungs: clear to auscultation Airway: Mallampati scale class II Neurological: alert and oriented Last oral intake: >/= 8 hours ASA classification: III Emergent: no Anesthetic plan: proceed Anesthesia type and monitoring: general GIVS and standard monitoring Results Review: All pre-operative results and documents have been reviewed as part of the pre- operative evaluation. Informed Consent: The patient's anesthetic plan and its attendant risks and benefits were discussed with the patient/family/POA. Questions were solicited and answers provided to the satisfaction of the patient/family/POA.
[2024-09-06] MEDS: LACTATED RINGERS 1,000 ML 150 ML IV CONT (07:03)
--- NOTE | 2024-09-06 07:58 | P.HP_ITS ---
H&P: HPI History of Present Illness Date/Time: 09/06/24 07:58 Chief Complaint: GERD, screening for colorectal cancer Narrative: this is a 54-year-old man who presents for EGD and colonoscopy. He has never had a colonoscopy before. He experiences frequent acid reflux and had 1 prior episode of hematemesis. He recently had his gallbladder out and symptoms are somewhat improved. He denies hematochezia or melena. He denies family history of colon cancer. Review of Systems Review of Systems: All systems reviewed & are unremarkable except as noted in HPI and below Constitutional: Constitutional: Denies chills, Denies fever(s), Denies headache(s) and Denies weight loss Eyes: Eyes: Denies change in vision ENT: Denies dizziness, Denies headache(s), Denies neck mass and Denies throat swelling Cardiovascular: Cardiovascular: Denies chest pain, Denies lightheadedness and Denies dyspnea Respiratory: Respiratory: Denies cough, Denies dyspnea and Denies wheezing Gastrointestinal: Gastrointestinal: Denies abdominal pain, Denies change in bowel habits, Denies nausea and Denies vomiting Genitourinary: Genitourinary: Denies hematuria and Denies dysuria Musculoskeletal: Musculoskeletal: Reports as per HPI Integumentary/Breasts: Skin/Breast: Reports as per HPI Neurologic: Denies dizziness and Denies headache(s) Allergic/Immunologic: Allergic/Immunologic: Denies throat swelling and Denies wheezing [facility] Past Medical History Medical History (Updated 08/26/24 @ 14:32 by Helen Daley) Gallbladder disorder Allergies Lipoma DVT (deep venous thrombosis) Surgical History Surgical History (Updated 08/26/24 @ 14:23 by Kulwant Graves MA) Hx laparoscopic cholecystectomy 08/09/24 1. Laparoscopic cholecystectomy with cholangiography, da Nereida assisted 2. Interpretation of cholangiography Dr. Aguilar S/P excision of lipoma 05/13/22 Family History Family History Father Malignant neoplasm of prostate Social History Social History Smoking packs per day: 1 Smoking cigarettes per day: 20.0 Years smoked: 10 Smoking pack-years: 10.00 Smoking status: Former smoker Tobacco type: cigarettes Smoking end date: 07/30/08 Alcohol intake: current Drinks per week: 1 Substance use: never Substance use type: does not use Do You Feel Safe in your Home?: Yes Lack of Transportation: No Lack of Food: Never True Current Housing: I Have Housing Concerned About Future Housing: No Difficulty Paying Gas/Electric Bills: No Difficulty Paying for Meds: No Currently Unemployed: No Education: Bachelor's Degree Difficulty w/ Childcare or Family Care: No Living arrangements: with family Spiritual care concerns: No Meds Home Medications and Allergies Home Medications ?Medication ?Instructions ?Recorded ?Confirmed ?Type aspirin 81 mg capsule 81 mg PO DAILY 05/31/22 08/30/24 History cetirizine 10 mg tablet (Zyrtec) 10 mg PO DAILY 05/31/22 08/30/24 History multivitamin with minerals-folic 1 tablet PO DAILY 05/31/22 08/30/24 History acid 12 mcg chewable tablet (Centrum Adults) niacin 500 mg tablet,extended 500 mg PO QAM 05/31/22 08/30/24 History release valacyclovir 500 mg tablet 500 mg PO DAILY 05/31/22 08/30/24 History cholecalciferol (vitamin D3) 25 1,000 unit PO DAILY 07/30/24 08/30/24 History mcg (1,000 unit) capsule (Vitamin D3) famotidine 10 mg tablet (Acid 10 mg PO DAILY 07/30/24 08/30/24 History Balloon Artist (famotidine)) Allergies Allergy/AdvReac Type Severity Reaction Status Date / Time No Known Allergies Allergy Verified 09/06/24 06:51 Vital Signs Vital Signs - 24 hr 09/06/24 06:52 Temperature 97 F L Pulse Rate 75 Respiratory Rate 18 Blood Pressure 116/89 Pulse Oximetry 99 Oxygen Delivery Room Air Exam Const: General: no acute distress and alert Orientation/consciousness: patient oriented x3 HENMT: Head: normocephalic and atraumatic Ears: hearing grossly normal bilaterally Face/Nose/Sinus: Normal nares present Mouth: Yes Normal oral and palatal mucosa present Eyes: Periorbital: periorbital findings normal Sclera: sclerae normal EOM: EOMs intact bilaterally Neck: Neck: normal visual inspection, no lymphadenopathy and trachea midline Chest: Chest palpation & inspection: normal inspection of the chest Resp: Effort & Inspection: normal respiratory effort Auscultation: clear to auscultation bilaterally Cardio: Jugular venous distension: no JVD Rate: regular rate Rhythm: regular rhythm Heart sounds: S1 normal heart sound present and S2 normal heart sound present Peripheral pulses: Peripheral pulses 2+ throughout GI: Inspection: normal to inspection GI Palp: Yes Soft to palpation, No Tenderness to palpation present (GI), No Guarding due to palpation present (GI) and No Rebound tenderness present Percussion: Yes normal to percussion Auscultation: normal bowel sounds : General: Yes no CVA tenderness Back/Spine/Pelvis: Back: no CVA tenderness Neuro: General: patient oriented x3, no focal motor deficits and CN's II-XI intact bilaterally Cognition (Neuro): normal cognition Speech: normal speech Motor exam (neuro): 5/5 motor strength present throughout Extrem: General: capillary refill normal and no clubbing, cyanosis or edema Assessment and Plan Assessment and plan (1) GERD (gastroesophageal reflux disease): Code(s): K21.9 - Gastro-esophageal reflux disease without esophagitis Status: Acute Assessment and Plan: I have recommended EGD and colonoscopy. I have discussed the procedure, risks, benefits, and alternatives. Questions were answered. Patient is agreeable to proceed. (2) Screening for colon cancer: Code(s): Z12.11 - Encounter for screening for malignant neoplasm of colon Status: Acute
--- NOTE | 2024-09-06 08:19 | SUR.OPER ---
EGD ended 815; Colonoscopy started at 821
--- NOTE | 2024-09-06 08:23 | S_PTH ---
PATIENT: Maxim Briones III LOC: [facility][id number] AGE/SX: 54/M ROOM: RE09/06/[address]: Kwan Aguilar DO : 1970 BED: DIS: 09/06/2024 SPEC #: [id number] RECD: 09/06/24 10:34 STATUS: YVONNE RECristo #: [id number] RASHMI: 09/06/24 08:[address]: Kwan Aguilar DEPT: [facility] Surgical RECD BY: Tj Mercado ENTERED: 09/06/24 10:37 SP TYPE: Surgical OTHR DR: Kwan HernándezMD Tissues: A - Duodenal Biopsy B - Gastric Biopsy C - Esophageal Biopsy Procedures: Hematoxylin and Eosin Stain Gross and Microscopic Level 4
[2024-09-06 08:41] VITALS: BP 114/76; PULSE 75; RESP 16; O2SAT 95
[2024-09-06 08:51] VITALS: BP 112/81; PULSE 67; RESP 16; O2SAT 94
[2024-09-06 09:01] VITALS: BP 121/75; PULSE 65; RESP 15; O2SAT 98
[2024-09-06 09:25] LABS: HPYLORIRESULT Negative (Negative)
== END 2024-09-06 09:12 | disposition home or self-care (01) ==
PROVIDERS: PCP Internal Medicine; Visit Provider Surgery
PROC: 0DJ08ZZ Inspection of Upper Intestinal Tract, Via Natural or Artificial Opening Endoscopic (ICD-10-PCS; CPT 45378; principal; 2024-09-06 08:00)
DX: Z12.11 Encounter for screening for malignant neoplasm of colon (principal); K21.00 Gastro-esophageal reflux disease with esophagitis, without bleeding; K31.89 Other diseases of stomach and duodenum; K29.80 Duodenitis without bleeding; K29.00 Acute gastritis without bleeding; E66.9 Obesity, unspecified; Z68.33 Body mass index [BMI] 33.0-33.9, adult; Z79.82 Long term (current) use of aspirin; Z98.890 Other specified postprocedural states; Z90.49 Acquired absence of other specified parts of digestive tract; Z87.891 Personal history of nicotine dependence; Z86.718 Personal history of other venous thrombosis and embolism; Z80.42 Family history of malignant neoplasm of prostate
CPT/HCPCS: 43239; 45378; 87081; 88305; J2003; J2704; J7120